=== PATIENT | female | born 1980 | race Caucasian/White ===

== ENCOUNTER → 2020-02-01 16:24 | Outpatient (CLI) | payer OTHER, MEDICAID, SELFPAY ==
--- NOTE | 2020-02-01 16:48 | DI.RAD.S_ITS ---
PROCEDURE: XR CHEST 2V INDICATIONS: SHOB/productive cough/Low sats TECHNIQUE: 2 views of the chest were acquired. COMPARISON: None. FINDINGS: Surgical changes and devices: None. Lungs and pleura: Increased bronchovascular markings in bilateral hilar region are seen with mild bronchial wall thickening. No definite focal infiltrate. No pleural effusions or pneumothorax. Mediastinum: Mediastinal contours are normal. Heart size is normal. Bones and chest wall: No suspicious bony abnormalities. Soft tissues appear unremarkable. IMPRESSION: Suggestion of reactive airway disease such as viral pneumonia or bronchitis. No definite focal infiltrate. No pleural effusion or pneumothorax. Dictated by: Sherwin Alatorre M.D. on 02/01/2020 at 17:09 Approved by: Sherwin Alatorre M.D. on 02/01/2020 at 17:10
[2020-02-02 09:47] LABS: COVID19 Sendout Not Detected (Not Detect)
== END ==
PROVIDERS: Family Provider Family Medicine; PCP Family Medicine; Visit Provider Student in an Organized Health Care Education/Training Program
DX: R05 Cough (principal)
CPT/HCPCS: 71046; 87635

== ENCOUNTER 2020-02-04 19:52 | Inpatient (IN) | payer OTHER, MEDICAID, SELFPAY ==
[2020-02-04] VITALS (8 sets, daily range): BP systolic 130–141; BP diastolic 78–83; PULSE 88–112; RESP 16–26; TEMP 36.7–36.9; O2SAT 91–94; BMI 28.1
--- NOTE | 2020-02-04 20:00 | DI.RAD.S_ITS ---
PROCEDURE: XR CHEST 2V INDICATIONS: Shortness of breath TECHNIQUE: 2 views of the chest were acquired. COMPARISON: [facility], CR, XR CHEST 2V, 02/01/2020, 16:39. FINDINGS: Surgical changes and devices: None. Lungs and pleura: Mildly increased perihilar interstitial markings. No focal consolidation. No pleural effusions or pneumothorax. Mediastinum: Mediastinal contours are normal. Heart size is normal. Bones and chest wall: No suspicious bony abnormalities. Soft tissues appear unremarkable. IMPRESSION: Mildly increased perihilar interstitial markings. This can be seen in infectious or non infectious bronchiolitis. Dictated by: Roberto Leahy M.D. on 02/04/2020 at 20:46 Approved by: Roberto Leahy M.D. on 02/04/2020 at 20:47
--- NOTE | 2020-02-04 20:08 | ED.SOB ---
HPI - SOB/Dyspnea General Chief Complaint: Shortness of Breath/Dyspnea Stated Complaint: states she cant breath Time Seen by Provider: 02/04/20 20:00 Source: patient and family Mode of arrival: Ambulatory Limitations: no limitations History of Present Illness HPI Narrative: 39-year-old female daily smoker presents with a chief complaint gradually worsening cough with wheeze since September. She denies any fever or chills but is gradually worsening, shortness of breath is moving in the wrong direction. She denies much in the way of any production of her cough. She denies any nausea or vomiting but does have some decreased appetite. She was seen and evaluated in the respiratory clinic recently and had a thorough workup including a negative COVID-19 swab and negative chest x-ray. She was put on a Z-Gregory and given a steroid taper presents here today because she is worse. MD Complaint: shortness of breath and cough Onset (ago): month(s) Severity: moderate Consistency/Duration: constant Relieving factors: nothing Exacerbating factors: exertion Associated symptoms: cough and wheezing Treatment prior to arrival: none Related Data Home oxygen amount: none Home Medications Medication Instructions Recorded Confirmed levonorgestrel 20 mcg/24 hours (5 INTRAUTERINE each 03/31/18 02/01/20 yrs) 52 mg intrauterine device Previous Rx's Medication Instructions Recorded ibuprofen 600 mg PO Q6HR PRN #20 tab 11/19/17 azithromycin 250 mg tablet See Rx Instructions PO .COMPLEX 5 02/01/20 Days #6 tab albuterol sulfate 90 mcg/actuation 1 inh INHALATION Q4-6H PRN #18 gram 02/02/20 aerosol inhaler prednisone 20 mg tablet See Rx Instructions PO .COMPLEX 6 02/02/20 Days #7 tab Allergies Allergy/AdvReac Type Severity Reaction Status Date / Time morphine [MORPHINE] Allergy Intermediate delusional Verified 02/01/20 15:50 Review of Systems Constitutional Constitutional: Denies chills, Denies fatigue, Denies fever(s), Denies frequent falls, Denies lethargy and Denies weakness Eyes Eyes: Denies change in vision, Denies eye discharge, Denies irritation and Denies loss of vision ENT Ears, Nose, Mouth, and Throat: Denies change in voice, Denies dizziness, Denies neck pain, Denies sore throat and Denies throat swelling Cardiovascular Cardiovascular: Denies chest pain, Denies irregular heart rhythm, Denies lightheadedness, Denies palpitations, Reports dyspnea, Denies dyspnea on exertion and Denies orthopnea Respiratory Respiratory: Reports cough, Reports dyspnea, Denies dyspnea on exertion and Reports wheezing Gastrointestinal Gastrointestinal: Denies abdominal pain, Denies change in bowel habits, Denies diarrhea, Denies nausea and Denies vomiting Musculoskeletal Musculoskeletal: Denies neck pain and Denies numbness Integumentary/Breasts Skin/Breast: Denies pruritus, Denies erythema, Denies rash and Denies wounds Neurologic Neurologic: Denies behavioral changes, Denies confusion, Denies dizziness, Denies frequent falls, Denies loss of vision, Denies numbness and Denies weakness Psychiatric Psychiatric: Denies anxiety, Denies behavioral changes, Denies confusion, Denies depression, Denies homicidal ideation and Denies suicidal ideation Endocrine Endocrine: Denies fatigue, Denies flushing and Denies palpitations Hematologic/Lymphatic Hematologic/Lymphatic: Denies easy bruising Allergic/Immunologic Allergic/Immunologic: Denies urticaria, Denies throat swelling and Reports wheezing Patient History Medical History ADHD (Chronic) Anxiety (Chronic) Cellulitis (Inactive) Cyst of finger (Inactive) Depression (Chronic ~1993) Fibromyalgia (Chronic ~2008) Migraines (Chronic ~1993) examination following delivery (Inactive) Shoulder pain (Chronic ~2011) Surgical History Status post delivery (07/06/11) Status post delivery (07/08/07) Family History Father Age: 61 Mental health problem Grandfather Diabetes mellitus Heart disease Social History Smoking Status: Current some day smoker Smoking Status: Current some day smoker Substance Use Type: marijuana Exam Narrative Exam Narrative: GENERAL: [39] year old patient appears stated age. Well-nourished, well-developed patient, in mild distress. HEAD: Atraumatic. Normocephalic. EYES: Pupils equal round and reactive. Extraocular motions intact. No scleral icterus. No injection or drainage. ENT: Nose without bleeding, purulent drainage. Throat without erythema, tonsillar hypertrophy or exudate. Airway patent. NECK: Trachea midline. Non tender CARDIOVASCULAR: Regular rate and rhythm without murmurs, gallops, or rubs. RESPIRATORY: Inspiratory and expiatory wheeze in all must[place], no crackles or rhonchi, tachypnea GASTROINTESTINAL: Abdomen soft, non-tender, nondistended. EXTREMITIES: No edema or joint tenderness. BACK: Nontender without deformity or crepitance. No flank tenderness. NEURO: AOx3. SKIN: No rash or erythema of visible areas Initial Vital Signs Initial Vital Signs: Vital Signs Temperature 98.1 F 02/04/20 19:56 Pulse Rate 107 H 02/04/20 19:56 Respiratory Rate 22 02/04/20 19:56 Blood Pressure 130/80 02/04/20 19:56 Pulse Oximetry 93 02/04/20 19:56 Course Orders Ordered: ED Orders 02/04/20 20:00 XR chest 2V Stat EKG-12 Lead Stat Measure peak expiratory flow ONCE RT Consult Eval and Treat Now 02/04/20 20:12 High flow/High humidity nasal NOW 02/04/20 20:50 C-Reactive Protein Quant Stat Complete Blood Count AUTO DIFF Stat Comprehensive Metabolic Panel Stat D Dimer Stat Ferritin Stat Lactate (Lactic Acid) Stat NT-proBNP (BNP-Adult 18+) Stat Procalcitonin Stat 02/04/20 20:55 Blood Culture Stat 02/04/20 21:20 CT angio chest PE protocol Stat Albuterol (Ventolin Hfa (Vent/Covid R/O)) 1 puff INH Q4H PRN PRN Reason: shortness of breath Sodium Chloride (Normal Saline 0.9%) 1,000 mls @ 125 mls/hr IV CONT DYLAN Last Admin: 02/05/20 01:55 Dose: 125 mls/hr Documented by: [email or web address] Levofloxacin (Levaquin) 750 mg in 150 mls @ 100 mls/hr IV NOW ONE Stop: 02/05/20 02:21 Last Admin: 02/05/20 01:56 Dose: 100 mls/hr Documented by: [email or web address] Discontinued Medications Albuterol (Ventolin Hfa) 2 puff INH NOW ONE Stop: 02/04/20 20:13 Sodium Chloride (Normal Saline 0.9%) 1,000 mls @ 1,000 mls/hr IV BOLUS ONE Stop: 02/04/20 22:18 Last Infusion: 02/04/20 22:45 Dose: 0 mls/hr Documented by: Admin: 02/04/20 21:34 Dose: 1,000 mls/hr Documented by: ROHAN Lorazepam (Ativan) 0.5 mg IV NOW ONE Stop: 02/05/20 02:06 Methylprednisolone (Solu-Medrol 125 Mg Vial) 125 mg IV NOW ONE Stop: 02/04/20 20:14 Last Admin: 02/04/20 21:20 Dose: 125 mg Documented by: ROHAN Consultations Consultation #1: Dr. Mcelroy accepts on behalf of Dr. Anderson, asks that we admit to Dr. Anderson and write bridging orders Vital Signs Vital signs: Vital Signs - 8 hr 02/04/20 19:56 02/04/20 20:18 02/04/20 21:54 Temperature 98.1 F Pulse Rate 107 H 93 H Respiratory Rate 22 22 Blood Pressure 130/80 Pulse Oximetry 93 94 94 02/04/20 21:58 02/04/20 22:00 02/04/20 22:30 Temperature 98.4 F Pulse Rate 88 88 103 H Respiratory Rate 16 26 H 25 H Blood Pressure 141/83 H 130/78 136/82 Pulse Oximetry 94 93 94 02/04/20 23:00 02/04/20 23:30 02/05/20 00:00 Temperature Pulse Rate 112 H 106 H 87 Respiratory Rate 25 H 23 Blood Pressure Pulse Oximetry 94 91 93 02/05/20 00:30 02/05/20 01:00 02/05/20 01:28 Temperature Pulse Rate 79 90 105 H Respiratory Rate 21 29 H Blood Pressure 136/90 Pulse Oximetry 95 96 97 02/05/20 01:30 Temperature Pulse Rate 101 H Respiratory Rate 34 H Blood Pressure 146/91 H Pulse Oximetry 96 MDM - SOB/Dyspnea Lab Data Result diagrams: 02/04/20 20:50 02/04/20 20:50 Labs: Lab Results 02/04/20 02/04/20 02/04/20 Range/Units 20:50 20:50 20:50 WBC 19.0 H (4.5-11.0) X10^3/uL RBC 4.99 (4.0-5.2) X10^6/uL Hgb 15.2 (12.0-16.0) g/dL Hct 45.4 (36-46) % MCV 91.0 (80-100) fL MCH 30.5 (26-34) PG MCHC 33.5 (30-36) % RDW 13.6 (11.6-14.8) % Plt Count 382 (150-400) X10^3/uL Neut % (Auto) 80.7 H (50-75) % Lymph % (Auto) 13.1 L (25-40) % [place] % (Auto) 5.5 (3-14) % Eos % (Auto) 0.1 L (2-4) % Baso % (Auto) 0.6 (0-2) % Neut # (Auto) 73902 H (7422-1110) /uL Lymph # (Auto) 2500 (8539-2302) /uL [place] # (Auto) 1000 H (0-900) /uL Eos # (Auto) 0 (0-450) /uL Baso # (Auto) 100 (0-100) /uL D-Dimer 279 H (<230) ng/mL Sodium (137-145) mmol/L Potassium (3.4-5.1) mmol/L Chloride (98-107) mmol/L Carbon Dioxide (22-32) mmol/L BUN (7-17) mg/dL Creatinine (0.52-1.04) mg/dL Estimated GFR (>60) mL/min BUN/Creatinine Ratio (6-22) Glucose (70-100) mg/dL Lactate (0.7-2.1) mmol/L Calcium (8.4-10.2) mg/dL Ferritin (6-137) ng/mL Total Bilirubin (0.2-1.3) mg/dL AST (14-36) IU/L ALT (<35) IU/L Alkaline Phosphatase (38-126) U/L C-Reactive Protein (<1.0) mg/dL NT-Pro-B Natriuret Pep (<125) pg/mL Total Protein (6.3-8.2) g/dL Albumin (3.5-5.0) g/dL Globulin (1.7-4.1) g/dL Albumin/Globulin Ratio (1.0-2.8) Procalcitonin < 0.05 (<0.5) ng/mL COVID-19 PCR (Negative) 02/04/20 02/04/20 02/04/20 Range/Units 20:50 20:50 23:24 WBC (4.5-11.0) X10^3/uL RBC (4.0-5.2) X10^6/uL Hgb (12.0-16.0) g/dL Hct (36-46) % MCV (80-100) fL MCH (26-34) PG MCHC (30-36) % RDW (11.6-14.8) % Plt Count (150-400) X10^3/uL Neut % (Auto) (50-75) % Lymph % (Auto) (25-40) % [place] % (Auto) (3-14) % Eos % (Auto) (2-4) % Baso % (Auto) (0-2) % Neut # (Auto) (3244-6865) /uL Lymph # (Auto) (7198-8333) /uL [place] # (Auto) (0-900) /uL Eos # (Auto) (0-450) /uL Baso # (Auto) (0-100) /uL D-Dimer (<230) ng/mL Sodium 140 (137-145) mmol/L Potassium 4.0 (3.4-5.1) mmol/L Chloride 104 (98-107) mmol/L Carbon Dioxide 24 (22-32) mmol/L BUN 13 (7-17) mg/dL Creatinine 0.75 (0.52-1.04) mg/dL Estimated GFR > 60.0 (>60) mL/min BUN/Creatinine Ratio 17.3 (6-22) Glucose 113 H (70-100) mg/dL Lactate 4.0 H 1.7 (0.7-2.1) mmol/L Calcium 10.0 (8.4-10.2) mg/dL Ferritin 89 (6-137) ng/mL Total Bilirubin 0.7 (0.2-1.3) mg/dL AST 21 (14-36) IU/L ALT 17 (<35) IU/L Alkaline Phosphatase 54 (38-126) U/L C-Reactive Protein 4.4 H (<1.0) mg/dL NT-Pro-B Natriuret Pep 88 (<125) pg/mL Total Protein 7.8 (6.3-8.2) g/dL Albumin 4.7 (3.5-5.0) g/dL Globulin 3.1 (1.7-4.1) g/dL Albumin/Globulin Ratio 1.5 (1.0-2.8) Procalcitonin (<0.5) ng/mL COVID-19 PCR (Negative) 02/04/20 Range/Units 23:33 WBC (4.5-11.0) X10^3/uL RBC (4.0-5.2) X10^6/uL Hgb (12.0-16.0) g/dL Hct (36-46) % MCV (80-100) fL MCH (26-34) PG MCHC (30-36) % RDW (11.6-14.8) % Plt Count (150-400) X10^3/uL Neut % (Auto) (50-75) % Lymph % (Auto) (25-40) % [place] % (Auto) (3-14) % Eos % (Auto) (2-4) % Baso % (Auto) (0-2) % Neut # (Auto) (2515-3027) /uL Lymph # (Auto) (7196-2725) /uL [place] # (Auto) (0-900) /uL Eos # (Auto) (0-450) /uL Baso # (Auto) (0-100) /uL D-Dimer (<230) ng/mL Sodium (137-145) mmol/L Potassium (3.4-5.1) mmol/L Chloride (98-107) mmol/L Carbon Dioxide (22-32) mmol/L BUN (7-17) mg/dL Creatinine (0.52-1.04) mg/dL Estimated GFR (>60) mL/min BUN/Creatinine Ratio (6-22) Glucose (70-100) mg/dL Lactate (0.7-2.1) mmol/L Calcium (8.4-10.2) mg/dL Ferritin (6-137) ng/mL Total Bilirubin (0.2-1.3) mg/dL AST (14-36) IU/L ALT (<35) IU/L Alkaline Phosphatase (38-126) U/L C-Reactive Protein (<1.0) mg/dL NT-Pro-B Natriuret Pep (<125) pg/mL Total Protein (6.3-8.2) g/dL Albumin (3.5-5.0) g/dL Globulin (1.7-4.1) g/dL Albumin/Globulin Ratio (1.0-2.8) Procalcitonin (<0.5) ng/mL COVID-19 PCR Negative (Negative) Imaging Data CT scan - chest: Radiologist's Impression: No PE, multiple groundglass opacities MDM Narrative Medical decision making narrative: Patient with increasing respiratory symptoms including shortness of breath and persistent dry hacking cough over the past few days. She has had a recent visit to outpatient clinic and was treated for a viral pneumonia, had a [place] id negative and was given a Z-Gregory and steroid. She presents and is worsening despite these symptoms. Patient given fluids, IV antibiotics and though initial lactate was quite elevated the repeat had greatly improved after above-stated therapies, and there is some question regarding. Patient has had no fever and WBC very possibly elevated from steroid vs. infection. Patient initially thought to be exacerbation of COPD and viral pneumonia, ABX had already been given earlier today. She requires hospitalization for stabilization and ongoing evaluation. Discharge Plan Departure Patient Disposition: Admitted As Inpatient Clinical Impression: COPD exacerbation, Multifocal pneumonia Referrals: Roberto Anderson MD [Primary Care Provider] - Admit Date/Time: 02/05/20 01:53 Admit Provider: Roberto Anderson
--- NOTE | 2020-02-04 20:39 | RT ---
02/04/2020 2018 Eval and Treat patient with recent diagnosis of PNA, paroxysmal cough and wheezing. Patient admits to smoking and using Albuterol for several days. VS: P80/ RR 22/ Sat 94% on RA/ BS diffuse tight wheezes on E-phase increased with paroxysmal cough. Patient is an admitted smoker. Post treatment and evaluation: P 100/ RR 22/ Sat 94% on RA with lingering cough and essentially the same wheezes. MDI instruct and spacer instruct and used patient's inhaler x 3 without much relief. PF post inhalers 200LPM. Will recommend [id number]-style cough syrup or similar and use of MDI with spacer. Patient may need more than this or admit. Paul Garcia, PULL WORKER
[2020-02-04 21:05] LABS: Add Manual Diff / Slide Review NO; Basophils Absolute Auto 100 /uL (0-100); Basophils Percent Auto 0.6 % (0-2); Eosinophils Absolute Auto 0 /uL (0-450); Eosinophils Percent Auto 0.1 % (2-4); Hematocrit 45.4 % (36-46); Hemoglobin 15.2 g/dL (12.0-16.0); Lymphocytes Absolute Auto 2500 /uL (1100-4500); Lymphocytes Percent Auto 13.1 % (25-40); Mean Corpuscular HGB Conc 33.5 % (30-36); Mean Corpuscular Hemoglobin 30.5 PG (26-34); Monocytes Absolute Auto 1000 /uL (0-900); Monocytes Percent Auto 5.5 % (3-14); Neutrophils Absolute Auto 15300 /uL (1500-7000); Neutrophils Percent Auto 80.7 % (50-75); Platelet Count 382 X10^3/uL (150-400); Red Blood Cell Count 4.99 X10^6/uL (4.0-5.2); Red Cell Distribution Width 13.6 % (11.6-14.8)
[2020-02-04 21:15] LABS: D Dimer 279 ng/mL (<230)
[2020-02-04] MEDS: methylPREDNISolone 125 MG/2 ML VIAL IV (21:20)
--- NOTE | 2020-02-04 21:20 | DI.CT.S_ITS ---
PROCEDURE: CT ANGIO CHEST PE PROTOCOL INDICATIONS: CP, SOB, hypoxia, elevated D Dimer TECHNIQUE: After the administration of intravenous contrast, 2 mm thick sections acquired from the pulmonary apices to the posterior costophrenic angles. 3-dimensional maximum intensity projection (MIP) coronal and sagittal reformats were then acquired through the thorax. For radiation dose reduction, the following was used: automated exposure control, adjustment of mA and/or kV according to patient size. COMPARISON: None. FINDINGS: Image quality: Excellent. Pulmonary arteries: Pulmonary arteries are normal in size, and demonstrate no intraluminal filling defects to suggest central pulmonary embolism. Lungs and pleura: Multifocal ground-glass opacities in the noted in the lungs bilaterally with central predominance. No pleural effusions or pneumothorax. Central and peripheral airways are patent. Mediastinum: Heart size is normal, without pericardial effusion. No mediastinal or hilar adenopathy. Thoracic aorta is normal in caliber and enhancement. Esophagus is normal in caliber, without hiatal hernia. Bones and chest wall: No suspicious bony lesions. Ribs and thoracic spine appear intact throughout. Thyroid gland contains a 1.7 centimeter partially calcified hypoattenuating nodule in the right lobe. No axillary or supraclavicular adenopathy. Abdomen: Visualized upper abdominal solid organs appear normal in the early arterial phase of enhancement. IMPRESSION: 1. No pulmonary embolus. 2. Bilateral lung multifocal ground-glass opacities concerning for atypical pneumonia. 3. 1.7 centimeter right thyroid nodule. Recommend thyroid ultrasound for definitive characterization when clinically feasible. Dictated by: Yeny Guillaume MD, PhD on 02/05/2020 at 7:05 Approved by: Yeny Guillaume MD, PhD on 02/05/2020 at 7:08
[2020-02-04 21:21] LABS: Alanine Aminotransferase 17 IU/L (<35); Albumin 4.7 g/dL (3.5-5.0); Albumin Globulin Ratio 1.5 (1.0-2.8); Alkaline Phosphatase 54 U/L (38-126); Aspartate Aminotransferase 21 IU/L (14-36); BUN Creatinine Ratio 17.3 (6-22); Bilirubin Total 0.7 mg/dL (0.2-1.3); Blood Urea Nitrogen 13 mg/dL (7-17); C-Reactive Protein Quant 4.4 mg/dL (<1.0); Carbon Dioxide 24 mmol/L (22-32); Chloride 104 mmol/L (98-107); Estimated Glomerular Filt Rate > 60.0 mL/min (>60); Globulin 3.1 g/dL (1.7-4.1); Glucose 113 mg/dL (70-100); HEMOLYSIS < 15 (0-50); Sodium 140 mmol/L (137-145); Total Protein 7.8 g/dL (6.3-8.2)
[2020-02-04 21:27] LABS: NT-proBNP (BNP-Adult 18+) 88 pg/mL (<125)
[2020-02-04 21:33] LABS: Procalcitonin < 0.05 ng/mL (<0.5)
[2020-02-04] MEDS: SODIUM CHLORIDE 0.9% 1,000 ML 1000 ML IV (21:34)
[2020-02-04 21:53] LABS: Ferritin 89 ng/mL (6-137)
[2020-02-04 22:59] LABS: Reflexed Lactate in 2 Hours Y
[2020-02-04 23:48] LABS: Lactate 2HR (Lactic Acid Rflx) 1.7 mmol/L (0.7-2.1)
[2020-02-05] VITALS (21 sets, daily range): BP systolic 136–170; BP diastolic 69–91; PULSE 79–120; RESP 12–34; TEMP 36.8–37.3; O2SAT 87–98; BMI 28.1
[2020-02-05 00:30] LABS: COVID19 -Nasal RAPID Negative (Negative)
[2020-02-05] MEDS: SODIUM CHLORIDE 0.9% 1,000 ML 125 ML IV (01:55)
[2020-02-05] MEDS: levoFLOXacin 750 MG/150 ML PIGGYBACK 100 MG IV ×2 (01:56→20:56)
[2020-02-05] MEDS: LORazepam 2 MG/ML INJ 0.5 MG IV ×5 (02:18→22:42)
[2020-02-05] MEDS: ALBUTEROL/IPRATROPIUM 3 ML AMPUL INH ×5 (02:31→22:25)
--- NOTE | 2020-02-05 06:50 | PC.NURSE ---
Late entry: Pt arrived to unit via wheelchair approx 0310, assisted to BR by MARKETING STRATEGIST. Pt's O2 sats running between 88-89% RA- started pt on O2 via NC 2-3L- sats running WNL now. Oriented to call light. Nursing assesment completed. Belongings at beside- offered to placed them in a safe she refused. Home meds were given to the coordinator to be sent to the pharmacy. Pt reports she had a couple hits of heroin prior going to the ED. Last use of Marijuana couple days ago.
[2020-02-05 06:51] LABS: Add Manual Diff / Slide Review NO; Basophils Absolute Auto 100 /uL (0-100); Basophils Percent Auto 0.5 % (0-2); Eosinophils Absolute Auto 0 /uL (0-450); Hematocrit 40.6 % (36-46); Hemoglobin 13.8 g/dL (12.0-16.0); Lymphocytes Absolute Auto 800 /uL (1100-4500); Lymphocytes Percent Auto 5.7 % (25-40); Mean Corpuscular HGB Conc 33.9 % (30-36); Mean Corpuscular Hemoglobin 30.7 PG (26-34); Mean Corpuscular Volume 90.6 fL (80-100); Monocytes Absolute Auto 100 /uL (0-900); Neutrophils Absolute Auto 12400 /uL (1500-7000); Neutrophils Percent Auto 92.8 % (50-75); Platelet Count 283 X10^3/uL (150-400); Red Blood Cell Count 4.48 X10^6/uL (4.0-5.2); Red Cell Distribution Width 13.3 % (11.6-14.8); White Blood Cell Count 13.4 X10^3/uL (4.5-11.0)
--- NOTE | 2020-02-05 09:27 | P.HP_ITS ---
History of Present Illness History of Present Illness Date Patient Seen: 02/05/20 Time Patient Seen: 09:27 Date of Onset of Symptoms: 09/20/19 Chief complaint: states she cant breath Patient History Medical History ADHD (Chronic) Anxiety (Chronic) Cellulitis (Inactive) Cyst of finger (Inactive) Depression (Chronic ~1993) Fibromyalgia (Chronic ~2008) Migraines (Chronic ~1993) examination following delivery (Inactive) Shoulder pain (Chronic ~2011) Surgical History Status post delivery (07/06/11) Status post delivery (07/08/07) Family & Social History Family History Father Age: 61 Mental health problem Grandfather Diabetes mellitus Heart disease Social History: household members other Prior Living Arrangements Homeless Safety & Behavioral: Feels Safe in Current Yes Environment Been Physically Hurt or No Threatened By a Person Suicidal Ideation Description None Suicide Plan Description No Plan Tobacco & Substance use: Tobacco type cigarettes Smoking Status Current some day smoker alcohol intake never Substance Use Type marijuana,heroin Meds Home Medications and Allergies Home Medications Medication Instructions Recorded Confirmed Type ibuprofen 600 mg PO Q6HR PRN #20 tab 11/19/17 02/05/20 Rx levonorgestrel 20 mcg/24 hours (5 INTRAUTERINE each 03/31/18 02/01/20 History yrs) 52 mg intrauterine device azithromycin 250 mg tablet See Rx Instructions PO .COMPLEX 5 02/01/20 02/05/20 Rx Days #6 tab albuterol sulfate 90 mcg/actuation 1 inh INHALATION Q4-6H PRN #18 gram 02/02/20 02/05/20 Rx aerosol inhaler prednisone 20 mg tablet See Rx Instructions PO .COMPLEX 6 02/02/20 02/05/20 Rx Days #7 tab Allergies Allergy/AdvReac Type Severity Reaction Status Date / Time morphine [MORPHINE] Allergy Intermediate delusional Verified 02/01/20 15:50 Exam Vital Signs (past 8 hours): - 02/05/20 01:28 02/05/20 01:30 02/05/20 02:00 Temperature Pulse Rate 105 H 101 H 105 H Respiratory Rate 34 H 29 H Blood Pressure 136/90 146/91 H Pulse Oximetry 97 96 95 02/05/20 02:30 02/05/20 02:55 02/05/20 04:32 Temperature 98.4 F Pulse Rate 104 H Respiratory Rate 12 Blood Pressure 144/89 H 148/82 H Pulse Oximetry 90 L 95 02/05/20 06:41 02/05/20 08:00 02/05/20 09:01 Temperature 98.9 F Pulse Rate 89 113 H 110 H Respiratory Rate 33 H 24 Blood Pressure 149/69 H Pulse Oximetry 98 95 93 Oxygen Delivery Method Nasal Cannula Oxygen Flow Rate 2 Objective Labs Result Diagrams: 02/05/20 06:25 02/04/20 20:50 Labs: Laboratory Results - last 24 hr 02/04/20 02/04/20 02/04/20 20:50 20:50 20:50 WBC 19.0 H RBC 4.99 Hgb 15.2 Hct 45.4 MCV 91.0 MCH 30.5 MCHC 33.5 RDW 13.6 Plt Count 382 Neut % (Auto) 80.7 H Lymph % (Auto) 13.1 L [place] % (Auto) 5.5 Eos % (Auto) 0.1 L Baso % (Auto) 0.6 Neut # (Auto) 77258 H Lymph # (Auto) 2500 [place] # (Auto) 1000 H Eos # (Auto) 0 Baso # (Auto) 100 D-Dimer 279 H Sodium Potassium Chloride Carbon Dioxide BUN Creatinine Estimated GFR BUN/Creatinine Ratio Glucose Lactate Calcium Ferritin Total Bilirubin AST ALT Alkaline Phosphatase C-Reactive Protein NT-Pro-B Natriuret Pep Total Protein Albumin Globulin Albumin/Globulin Ratio Procalcitonin < 0.05 COVID-19 PCR 02/04/20 02/04/20 02/04/20 20:50 20:50 23:24 WBC RBC Hgb Hct MCV MCH MCHC RDW Plt Count Neut % (Auto) Lymph % (Auto) [place] % (Auto) Eos % (Auto) Baso % (Auto) Neut # (Auto) Lymph # (Auto) [place] # (Auto) Eos # (Auto) Baso # (Auto) D-Dimer Sodium 140 Potassium 4.0 Chloride 104 Carbon Dioxide 24 BUN 13 Creatinine 0.75 Estimated GFR > 60.0 BUN/Creatinine Ratio 17.3 Glucose 113 H Lactate 4.0 H 1.7 Calcium 10.0 Ferritin 89 Total Bilirubin 0.7 AST 21 ALT 17 Alkaline Phosphatase 54 C-Reactive Protein 4.4 H NT-Pro-B Natriuret Pep 88 Total Protein 7.8 Albumin 4.7 Globulin 3.1 Albumin/Globulin Ratio 1.5 Procalcitonin COVID-19 PCR 02/04/20 02/05/20 23:33 06:25 WBC 13.4 H RBC 4.48 Hgb 13.8 Hct 40.6 MCV 90.6 MCH 30.7 MCHC 33.9 RDW 13.3 Plt Count 283 Neut % (Auto) 92.8 H Lymph % (Auto) 5.7 L [place] % (Auto) 1.0 L Eos % (Auto) 0.0 L Baso % (Auto) 0.5 Neut # (Auto) 60177 H Lymph # (Auto) 800 L [place] # (Auto) 100 Eos # (Auto) 0 Baso # (Auto) 100 D-Dimer Sodium Potassium Chloride Carbon Dioxide BUN Creatinine Estimated GFR BUN/Creatinine Ratio Glucose Lactate Calcium Ferritin Total Bilirubin AST ALT Alkaline Phosphatase C-Reactive Protein NT-Pro-B Natriuret Pep Total Protein Albumin Globulin Albumin/Globulin Ratio Procalcitonin COVID-19 PCR Negative
[2020-02-05] MEDS: ENOXAPARIN 40 MG/0.4 ML SYRINGE SUBCUT (09:29)
[2020-02-05] MEDS: ACETAMINOPHEN 325 MG TABLET 650 MG PO (09:29)
[2020-02-05] MEDS: IBUPROFEN 600 MG TABLET PO ×2 (09:30→22:10)
--- NOTE | 2020-02-05 09:32 | P.HP_ITS ---
History of Present Illness History of Present Illness Date Patient Seen: 02/05/20 Time Patient Seen: 09:32 Date of Onset of Symptoms: 09/20/19 Chief complaint: states she cant breath Narrative: Shortness of breath. Patient admitted through the ER because of shortness of breath. She has been having shortness of breath symptoms since September has had a cough a and slight wheeze. She had no fever chills she is aware of. No head congestion to shortness of breath period of this persisted for several weeks. She came to the walk-in clinic last week found to have what was felt to be atypical pneumonia placed on oral steroids and azithromycin. She did not feel like this had any effect. She came in this morning because of increased shortness of breath. Additionally she is a daily heroin user and she wants to stop using heroin and she feels like she may need some assistance as far for the withdrawal. She has had heroin withdrawal in the past. She apparently has been using daily heroin since July of this year. She is evaluated in with louann Jenkins. Patient has been a smoker intermittently for several years on and off she quit smoking during the fibroid disease. She denies ever having had a title of of COPD. Patient History Medical History ADHD (Chronic) Anxiety (Chronic) Cellulitis (Inactive) Cyst of finger (Inactive) Depression (Chronic ~1993) Fibromyalgia (Chronic ~2008) Migraines (Chronic ~1993) examination following delivery (Inactive) Shoulder pain (Chronic ~2011) Surgical History Status post delivery (07/06/11) Status post delivery (07/08/07) Family & Social History Family History Father Age: 61 Mental health problem Grandfather Diabetes mellitus Heart disease Social History: household members other Prior Living Arrangements Homeless Safety & Behavioral: Feels Safe in Current Yes Environment Been Physically Hurt or No Threatened By a Person Suicidal Ideation Description None Suicide Plan Description No Plan Tobacco & Substance use: Tobacco type cigarettes Smoking Status Current some day smoker alcohol intake never Substance Use Type marijuana,heroin Meds Home Medications and Allergies Home Medications Medication Instructions Recorded Confirmed Type ibuprofen 600 mg PO Q6HR PRN #20 tab 11/19/17 02/05/20 Rx levonorgestrel 20 mcg/24 hours (5 INTRAUTERINE each 03/31/18 02/01/20 History yrs) 52 mg intrauterine device azithromycin 250 mg tablet See Rx Instructions PO .COMPLEX 5 02/01/20 02/05/20 Rx Days #6 tab albuterol sulfate 90 mcg/actuation 1 inh INHALATION Q4-6H PRN #18 gram 02/02/20 02/05/20 Rx aerosol inhaler prednisone 20 mg tablet See Rx Instructions PO .COMPLEX 6 02/02/20 02/05/20 Rx Days #7 tab Allergies Allergy/AdvReac Type Severity Reaction Status Date / Time morphine [MORPHINE] Allergy Intermediate delusional Verified 02/01/20 15:50 Review of Systems Review of Systems ROS: Yes All systems reviewed with the patient and are negative except as otherwise documented Exam Vital Signs (past 8 hours): - 02/05/20 02:00 02/05/20 02:30 02/05/20 02:55 Temperature 98.4 F Pulse Rate 105 H 104 H Respiratory Rate 29 H 12 Blood Pressure 144/89 H 148/82 H Pulse Oximetry 95 90 L 02/05/20 04:32 02/05/20 06:41 02/05/20 08:00 Temperature 98.9 F Pulse Rate 89 113 H Respiratory Rate 33 H Blood Pressure 149/69 H Pulse Oximetry 95 98 95 02/05/20 09:01 Temperature Pulse Rate 110 H Respiratory Rate 24 Blood Pressure Pulse Oximetry 93 Oxygen Delivery Method Nasal Cannula Oxygen Flow Rate 2 Narrative Exam Narrative: Gen.: Patient is examined in the hospital bed resting quietly with nasal oxygen. She does appear a bit short of breath and has audible wheezing. Skin: Warm well perfused. No prominent lesions. Nonicteric. HEENT: PERRL., normal EOM, external ears canals TMs normal, nasal mucosa normal and midline septum, oropharynx without lesions. Neck: Trachea midline. Thyroid nontender and not enlarged. Carotids without bruits. No lymphadenopathy Back: No obvious deformity or tenderness. Chest: Chest exam finds decreased breath sounds at does not take a deep breath. She has inspiratory and expiratory wheezing no rales but did have inspiratory rhonchi CV: RRR no murmur or gallop. No JVD. Abdomen: No masses bruits tenderness or visceromegaly. Neuro: Cranial nerves II through XII grossly intact. Sensory and motor exams intact. Gait normal. Mental status: Intact for screening Extremities: No cyanosis clubbing or edema Musculoskeletal: No gross deformities Lymphatics: Negative for lymphadenopathy, supraclavicular axillary or inguinal Objective Labs Result Diagrams: 02/05/20 06:25 02/04/20 20:50 Labs: Laboratory Results - last 24 hr 02/04/20 02/04/20 02/04/20 20:50 20:50 20:50 WBC 19.0 H RBC 4.99 Hgb 15.2 Hct 45.4 MCV 91.0 MCH 30.5 MCHC 33.5 RDW 13.6 Plt Count 382 Neut % (Auto) 80.7 H Lymph % (Auto) 13.1 L [place] % (Auto) 5.5 Eos % (Auto) 0.1 L Baso % (Auto) 0.6 Neut # (Auto) 35821 H Lymph # (Auto) 2500 [place] # (Auto) 1000 H Eos # (Auto) 0 Baso # (Auto) 100 D-Dimer 279 H Sodium Potassium Chloride Carbon Dioxide BUN Creatinine Estimated GFR BUN/Creatinine Ratio Glucose Lactate Calcium Ferritin Total Bilirubin AST ALT Alkaline Phosphatase C-Reactive Protein NT-Pro-B Natriuret Pep Total Protein Albumin Globulin Albumin/Globulin Ratio Procalcitonin < 0.05 COVID-19 [facility] 02/04/20 02/04/20 02/04/20 20:50 20:50 23:24 WBC RBC Hgb Hct MCV MCH MCHC RDW Plt Count Neut % (Auto) Lymph % (Auto) [place] % (Auto) Eos % (Auto) Baso % (Auto) Neut # (Auto) Lymph # (Auto) [place] # (Auto) Eos # (Auto) Baso # (Auto) D-Dimer Sodium 140 Potassium 4.0 Chloride 104 Carbon Dioxide 24 BUN 13 Creatinine 0.75 Estimated GFR > 60.0 BUN/Creatinine Ratio 17.3 Glucose 113 H Lactate 4.0 H 1.7 Calcium 10.0 Ferritin 89 Total Bilirubin 0.7 AST 21 ALT 17 Alkaline Phosphatase 54 C-Reactive Protein 4.4 H NT-Pro-B Natriuret Pep 88 Total Protein 7.8 Albumin 4.7 Globulin 3.1 Albumin/Globulin Ratio 1.5 Procalcitonin COVID-19 PCR 02/04/20 02/05/20 23:33 06:25 WBC 13.4 H RBC 4.48 Hgb 13.8 Hct 40.6 MCV 90.6 MCH 30.7 MCHC 33.9 RDW 13.3 Plt Count 283 Neut % (Auto) 92.8 H Lymph % (Auto) 5.7 L [place] % (Auto) 1.0 L Eos % (Auto) 0.0 L Baso % (Auto) 0.5 Neut # (Auto) 89673 H Lymph # (Auto) 800 L [place] # (Auto) 100 Eos # (Auto) 0 Baso # (Auto) 100 D-Dimer Sodium Potassium Chloride Carbon Dioxide BUN Creatinine Estimated GFR BUN/Creatinine Ratio Glucose Lactate Calcium Ferritin Total Bilirubin AST ALT Alkaline Phosphatase C-Reactive Protein NT-Pro-B Natriuret Pep Total Protein Albumin Globulin Albumin/Globulin Ratio Procalcitonin COVID-19 PCR Negative labs reviewed of significance on admission elevated white count elevated lactate that of normalized with IV fluids. Chest x-ray and chest CT consistent with viral pneumonitis no no blood clot no tumor no evidence for lobar pneumonia Assessment & Plan Assessment & Plan narrative: 1. The shortness of breath the has been ongoing problem and probably has some evidence of COPD base of the chronicity of this but no clear diagnosis. Shortness of breath seems to be chronic inflammatory type of shortness of breath likely has atypical pneumonitis now. 2. Ongoing smoker. 3. Here when user and the perhaps experiencing some withdrawal symptoms now. 4. Homelessness 5. Plan is to give her intravenous the will Inderjit over the weekend. Additionally Solu-Medrol intravenously. She will be given Ativan every 4 hours for agitation. Anticipate she will be here 3 or 4 days for because the combination or shortness of breath requiring fairly aggressive pulmonary toilet and treatment of her presumed heroin withdrawal with Ativan. Dr. Garcia will resume care over the weekend and Dr. Anderson will assume care on Saturday upon his return
[2020-02-05] MEDS: DEXTROSE 5%-0.9% NS 1,000 ML 100 ML IV ×2 (09:36→17:53)
[2020-02-05] MEDS: methylPREDNISolone 125 MG/2 ML VIAL 60 MG IV ×3 (09:41→20:56)
--- NOTE | 2020-02-05 14:16 | CM.SWNOTE ---
AUTOMOBILE MECHANIC MOTOR Note AUTOMOBILE MECHANIC MOTOR consult request placed to assess needs of this 39 yo, active heroin user, admits to currently being homeless. According to chart review, patient is admitted d/t SOB, COVID-19 Neg. Patient is a daily heroin user since July of this year, and requests assistance w/ detox. Patient has multiple children from different partners, none of whom are in her custody. Met w/patient this afternoon, introduced role. This AUTOMOBILE MECHANIC MOTOR suggests inpatient ANNA treatment if patient interested in such and this AUTOMOBILE MECHANIC MOTOR explains efforts should begin today, Saturday. Patient states it is difficult to talk or breathe today so requests this AUTOMOBILE MECHANIC MOTOR return tomorrow. Patient refuses inpatient ANNA treatment at this time. She states she has wanted to be clean but has been terrified of withdrawal so hasn't stopped using. Patient intends to stay clean after this hospitalization, states she has places to go upon DC. This AUTOMOBILE MECHANIC MOTOR will not initiate any steps towards securing an inpatient ANNA treatment spot, but am happy to follow closely and complete a more thorough assessment tomorrow if patient allows. Patient would benefit from outpt ANNA treatment resources. She would also benefit from a referral to [facility] through Dr Anderson's office if she were agreeable. RA Cross
--- NOTE | 2020-02-05 15:30 | PC.NURSE ---
Addendum entered by Lizzy Aguirre R.N. 02/05/20 15:31: Pt hops on right foot with IV pole due to recent left foot trauma; pt instructed to use call light for SBA Original Note: Anxiety and mild sweating to palms; IV Ativan administered; dry cough; expiratory wheezing; RT treatment; O2 2L=95%; pt resting in bed throughout shift
[2020-02-06] VITALS (7 sets, daily range): BP systolic 128–139; BP diastolic 70–90; PULSE 87–124; RESP 16–26; TEMP 36.7–37.2; O2SAT 93–99
[2020-02-06] MEDS: LORazepam 2 MG/ML INJ 0.5 MG IV ×5 (02:22→20:11)
[2020-02-06] MEDS: methylPREDNISolone 125 MG/2 ML VIAL 60 MG IV ×4 (03:21→20:56)
[2020-02-06 06:04] LABS: Add Manual Diff / Slide Review NO; Basophils Absolute Auto 0 /uL (0-100); Basophils Percent Auto 0.3 % (0-2); Eosinophils Absolute Auto 0 /uL (0-450); Hematocrit 37.4 % (36-46); Hemoglobin 12.4 g/dL (12.0-16.0); Lymphocytes Absolute Auto 800 /uL (1100-4500); Lymphocytes Percent Auto 6.3 % (25-40); Mean Corpuscular HGB Conc 33.1 % (30-36); Mean Corpuscular Hemoglobin 30.1 PG (26-34); Monocytes Absolute Auto 400 /uL (0-900); Neutrophils Absolute Auto 11100 /uL (1500-7000); Neutrophils Percent Auto 90.4 % (50-75); Platelet Count 303 X10^3/uL (150-400); Red Blood Cell Count 4.11 X10^6/uL (4.0-5.2); Red Cell Distribution Width 13.5 % (11.6-14.8); White Blood Cell Count 12.3 X10^3/uL (4.5-11.0)
[2020-02-06 06:12] LABS: BUN Creatinine Ratio 16.9 (6-22); Blood Urea Nitrogen 11 mg/dL (7-17); Calcium 9.3 mg/dL (8.4-10.2); Carbon Dioxide 24 mmol/L (22-32); Chloride 105 mmol/L (98-107); Estimated Glomerular Filt Rate > 60.0 mL/min (>60); Glucose 155 mg/dL (70-100); HEMOLYSIS < 15 (0-50); Potassium 4.1 mmol/L (3.4-5.1); Sodium 136 mmol/L (137-145)
[2020-02-06] MEDS: ENOXAPARIN 40 MG/0.4 ML SYRINGE SUBCUT (09:21)
[2020-02-06] MEDS: SODIUM CHLORIDE 0.9% FLUSH 10 ML IV ×2 (09:21→10:25)
[2020-02-06] MEDS: DEXTROSE 5%-0.9% NS 1,000 ML 100 ML IV ×2 (10:25→20:11)
--- NOTE | 2020-02-06 10:33 | PM.PN.1 ---
Subjective Subjective Date Patient Seen: 02/06/20 Time Patient Seen: 10:33 Interval history: Patient says her breathing is much better. Does not feel as tight or as breathless as she did Having some nausea and some restlessness clearly withdrawing from heroin. Reports she was smoking only but doing it up to 10 times a day. Now approaching 36 hours without any heroin Exam Vital Signs (past 8 hours): - 02/06/20 05:30 02/06/20 08:00 02/06/20 08:30 Temperature 98.9 F 98.3 F Pulse Rate 103 H 103 H 87 Respiratory Rate 18 26 H 16 Blood Pressure 136/90 139/88 Pulse Oximetry 97 97 96 Oxygen Delivery Method Room Air Oxygen Flow Rate 1 Narrative Exam Narrative: Lungs-diffuse wheezing without crackles, 3/4 breath sounds bilaterally Objective Labs Result Diagrams: 02/06/20 05:25 02/06/20 05:25 Labs: Laboratory Results - last 24 hr 02/06/20 02/06/20 05:25 05:25 WBC 12.3 H RBC 4.11 Hgb 12.4 Hct 37.4 MCV 91.0 MCH 30.1 MCHC 33.1 RDW 13.5 Plt Count 303 Neut % (Auto) 90.4 H Lymph % (Auto) 6.3 L [place] % (Auto) 3.0 Eos % (Auto) 0.0 L Baso % (Auto) 0.3 Neut # (Auto) 32199 H Lymph # (Auto) 800 L [place] # (Auto) 400 Eos # (Auto) 0 Baso # (Auto) 0 Sodium 136 L Potassium 4.1 Chloride 105 Carbon Dioxide 24 BUN 11 Creatinine 0.65 Estimated GFR > 60.0 BUN/Creatinine Ratio 16.9 Glucose 155 H Calcium 9.3 Assessment & Plan Assessment & Plan narrative: 1. Atypical pneumonia with reactive airways-continue with current antibiotic therapy and corticosteroids. Continue with frequent nebulizers. 2. Opiate withdrawal-continue with low-dose lorazepam will add an antiemetic. Ondansetron will be employed (does have an interaction with Levaquin for QT prolongation but will continue to monitor her carefully in the hospital, so seems appropriate). Will add clonidine in effort to reduce her withdrawal as well. If she becomes much more severe would consider use of methadone while hospitalized (but not long-term) 3. History of cigarette smoking-unclear whether patient is having any nicotine withdrawal as well. Will hold off on any nicotine replacement given the issues with the opiates/heroin withdrawal as above. 4. Substance use disorder-patient will be if not completely mostly detoxed from the opiates when she leaves the hospital. That would be a perfect time for her to enter into the substance use disorder program, an inpatient program would be the most beneficial. Thus far she has been resistant to that but that would be my strong recommendation as well. Note: Greater than 25 minutes was spent evaluating the patient on the floor, including examining the patient, discussing clinical course with clinical and nursing staff, reviewing clinical course in the computer, preparing documentation and writing orders for continued management of care, discussing status with family as appropriate, reviewing plans for the next 24 hours with both patient/family and nursing staff as appropriate.
[2020-02-06] MEDS: cloNIDine TTS 0.2 MG PATCH TOP (11:23)
--- NOTE | 2020-02-06 15:07 | PC.NURSE ---
Shift summary: Uneventful shift today. Patient able to rest on and off. Patient states breathing/shortness of breath improved, and tolerated room air with oxygen saturations remaining WNL this shift. Voiding without difficulty, standby assistance to bathroom with IV pole for safety. Patient reported mild nausea this morning, but reports tolerating meals. Call light within reach.
[2020-02-06] MEDS: IBUPROFEN 600 MG TABLET PO (16:00)
--- NOTE | 2020-02-06 16:11 | PC.NURSE ---
Addendum entered by Lotus Taylor R.N. 02/06/20 22:43: Pt's mother has visited this evening shift. Pt on telephone and occasionally tearful. Staff inquire how can be of help. Meds as per emar to treat anxiety, nausea, headache pain. States desires to sleep. Allowing for uninterrupted sleep. Reviewed care management has seen this patient. Original Note: Standby assistance to bathroom to void. Pt does not weight bear left foot as states recent prior surgery. Noted healing scar to dorsal aspect and left lateral aspect of foot. Occasional harsh cough and pt reports productive of yellow sputum. This was unwitnessed. Pt c/o headache pain 12/29. Requests to sit up in chair. Ibuprofen for headache pain as well as ice pack behind neck. IV to left wrist infusing without difficulty. Connection was tightened to iv hub as leaking blood and this ceases with securing of connection. Encouraged to call for needs.
[2020-02-06] MEDS: ACETAMINOPHEN 325 MG TABLET 650 MG PO (18:38)
[2020-02-06] MEDS: levoFLOXacin 750 MG/150 ML PIGGYBACK 100 MG IV (20:56)
[2020-02-06] MEDS: ONDANSETRON 4 MG/2 ML INJ IV (22:07)
[2020-02-07] VITALS (10 sets, daily range): BP systolic 129–141; BP diastolic 70–98; PULSE 60–97; RESP 16–18; TEMP 36.4–36.9; O2SAT 92–97
[2020-02-07] MEDS: LORazepam 2 MG/ML INJ 0.5 MG IV ×5 (00:15→21:06)
[2020-02-07] MEDS: methylPREDNISolone 125 MG/2 ML VIAL 60 MG IV ×4 (03:07→21:52)
[2020-02-07] MEDS: SODIUM CHLORIDE 0.9% FLUSH 10 ML IV ×2 (03:08→12:14)
[2020-02-07 05:44] LABS: Add Manual Diff / Slide Review NO; Basophils Absolute Auto 0 /uL (0-100); Basophils Percent Auto 0.2 % (0-2); Eosinophils Absolute Auto 0 /uL (0-450); Eosinophils Percent Auto 0.2 % (2-4); Hematocrit 35.8 % (36-46); Lymphocytes Absolute Auto 900 /uL (1100-4500); Lymphocytes Percent Auto 7.5 % (25-40); Mean Corpuscular HGB Conc 33.7 % (30-36); Mean Corpuscular Hemoglobin 30.5 PG (26-34); Mean Corpuscular Volume 90.6 fL (80-100); Monocytes Absolute Auto 300 /uL (0-900); Monocytes Percent Auto 2.6 % (3-14); Neutrophils Absolute Auto 11000 /uL (1500-7000); Neutrophils Percent Auto 89.5 % (50-75); Platelet Count 273 X10^3/uL (150-400); Red Blood Cell Count 3.95 X10^6/uL (4.0-5.2); Red Cell Distribution Width 13.6 % (11.6-14.8); White Blood Cell Count 12.3 X10^3/uL (4.5-11.0)
[2020-02-07 05:51] LABS: BUN Creatinine Ratio 21.9 (6-22); Blood Urea Nitrogen 16 mg/dL (7-17); Calcium 8.7 mg/dL (8.4-10.2); Carbon Dioxide 26 mmol/L (22-32); Chloride 104 mmol/L (98-107); Estimated Glomerular Filt Rate > 60.0 mL/min (>60); Glucose 147 mg/dL (70-100); HEMOLYSIS < 15 (0-50); Potassium 4.1 mmol/L (3.4-5.1); Sodium 135 mmol/L (137-145)
--- NOTE | 2020-02-07 08:34 | CM.DPC ---
DCP Cont: Per RN, pt is alert and oriented this morning and has been quite independent in her room and pending MD rounding pt may be stable for d/c today. SW met bedside with pt and explained role and followed up on SPRING TESTER conversation yesterday with pt regarding her interest in CD resources/Inpt CD treatment at discharge and pt confirms again that she is not interested in SW initiating treatment, either inpt or outpt, at this time. Pt was laying quietly in her hospital bed with blanket pulled up and was willing to participate in discussion but provided very brief answers. Pt confirms that she is aware and has attempted to access housing resources through [employer] and other resources and denies any further community resources at this time. Pt states she has someone who can give her a ride and she plans to stay with friends at d/c. Pt aware that she may be stable for d/c today pending MD rounding this morning. SW updated RN. Plan: SW to follow for pt d/c to friends house via friend POV and pt aware of community resources and declines SW support with setting up CD tx at this time. Lisseth Jovel, SPRING TESTER
[2020-02-07] MEDS: DEXTROSE 5%-0.9% NS 1,000 ML 100 ML IV (09:40)
[2020-02-07] MEDS: ENOXAPARIN 40 MG/0.4 ML SYRINGE SUBCUT (09:42)
--- NOTE | 2020-02-07 11:58 | P.PN_ITS ---
Subjective Subjective Date Patient Seen: 02/07/20 Time Patient Seen: 11:58 Interval history: Patient feels better. She is off oxygen now. Still coughing whenever she takes a deep breath but feels like she is able to breathe better. Has not really been up out of bed. She is somewhat hampered by a recent surgery on her left foot and she is not supposed to be up bearing weight without her walking boot which apparently she does not have with her No other active issues. A bit stressed out with social issues regarding her children and children's father etcetera Nausea appears to be minimal if any, I am just a bit anxious because of social issues as above, no real active withdrawal symptoms that she would at least admit to Exam Vital Signs (past 8 hours): - 02/07/20 05:10 02/07/20 07:55 02/07/20 09:06 Temperature 97.9 F 98.4 F Pulse Rate 97 H 80 92 H Respiratory Rate 18 16 16 Blood Pressure 141/85 H 135/96 H Pulse Oximetry 94 96 93 Oxygen Delivery Method Room Air Oxygen Flow Rate 0 Narrative Exam Narrative: Young woman in no obvious distress lying in hospital bed kind of curled up, with lunch sitting waiting for her HEENT-unremarkable Lungs-after a round of coughing, clear with no wheezes good air movement Heart-regular rate and rhythm Abdomen-positive bowel tones soft nontender Objective Labs Result Diagrams: 02/07/20 05:30 02/07/20 05:30 Labs: Laboratory Results - last 24 hr 02/07/20 02/07/20 05:30 05:30 WBC 12.3 H RBC 3.95 L Hgb 12.0 Hct 35.8 L MCV 90.6 MCH 30.5 MCHC 33.7 RDW 13.6 Plt Count 273 Neut % (Auto) 89.5 H Lymph % (Auto) 7.5 L [place] % (Auto) 2.6 L Eos % (Auto) 0.2 L Baso % (Auto) 0.2 Neut # (Auto) 64354 H Lymph # (Auto) 900 L [place] # (Auto) 300 Eos # (Auto) 0 Baso # (Auto) 0 Sodium 135 L Potassium 4.1 Chloride 104 Carbon Dioxide 26 BUN 16 Creatinine 0.73 Estimated GFR > 60.0 BUN/Creatinine Ratio 21.9 Glucose 147 H Calcium 8.7 Assessment & Plan Assessment & Plan narrative: 1. Atypical pneumonia with reactive airways-continue with current antibiotic therapy and corticosteroids. Continue with frequent nebulizers. Now off oxygen. Probably ready to go home tomorrow. She is encouraged to get up out of bed and move around some. 2. Opiate withdrawal-patient's symptoms are improved. Continue with clonidine patch including after discharge. Hopefully she can minimize use of lorazepam and ondansetron 3. History of cigarette smoking-no evidence of actual nicotine withdrawal although difficult to find in the setting of opiate withdrawal 4. Substance use disorder-patient is still declining any sort of treatment option will upon discharge. Care management team has been discussing this with her on a daily basis. Overall much improved and probably ready for discharge tomorrow assuming clinical course remained stable to improved. Note: Greater than 25 minutes was spent evaluating the patient on the floor, including examining the patient, discussing clinical course with clinical and nursing staff, reviewing clinical course in the computer, preparing documentation and writing orders for continued management of care, discussing status with family as appropriate, reviewing plans for the next 24 hours with both patient/family and nursing staff as appropriate.
[2020-02-07] MEDS: ALBUTEROL/IPRATROPIUM 3 ML AMPUL INH (14:15)
[2020-02-07] MEDS: ACETAMINOPHEN 325 MG TABLET 650 MG PO ×2 (15:32→21:05)
[2020-02-07] MEDS: levoFLOXacin 750 MG/150 ML PIGGYBACK 100 MG IV (21:05)
[2020-02-08] MEDS: LORazepam 2 MG/ML INJ 0.5 MG IV ×2 (01:32→08:48)
[2020-02-08] MEDS: methylPREDNISolone 125 MG/2 ML VIAL 60 MG IV ×2 (03:23→08:58)
[2020-02-08 03:29] VITALS: PULSE 69; RESP 18; TEMP 36.5; O2SAT 97
[2020-02-08 05:12] LABS: Add Manual Diff / Slide Review NO; Basophils Absolute Auto 0 /uL (0-100); Basophils Percent Auto 0.2 % (0-2); Eosinophils Absolute Auto 0 /uL (0-450); Hematocrit 37.8 % (36-46); Hemoglobin 12.9 g/dL (12.0-16.0); Lymphocytes Absolute Auto 900 /uL (1100-4500); Lymphocytes Percent Auto 7.9 % (25-40); Mean Corpuscular HGB Conc 34.2 % (30-36); Mean Corpuscular Hemoglobin 30.8 PG (26-34); Mean Corpuscular Volume 90.2 fL (80-100); Monocytes Absolute Auto 300 /uL (0-900); Monocytes Percent Auto 3.2 % (3-14); Neutrophils Absolute Auto 9700 /uL (1500-7000); Neutrophils Percent Auto 88.7 % (50-75); Platelet Count 294 X10^3/uL (150-400); Red Blood Cell Count 4.19 X10^6/uL (4.0-5.2); Red Cell Distribution Width 13.1 % (11.6-14.8); White Blood Cell Count 10.9 X10^3/uL (4.5-11.0)
[2020-02-08 05:19] LABS: BUN Creatinine Ratio 21.6 (6-22); Blood Urea Nitrogen 16 mg/dL (7-17); Calcium 8.9 mg/dL (8.4-10.2); Carbon Dioxide 27 mmol/L (22-32); Chloride 102 mmol/L (98-107); Estimated Glomerular Filt Rate > 60.0 mL/min (>60); Glucose 130 mg/dL (70-100); HEMOLYSIS < 15 (0-50); Potassium 4.2 mmol/L (3.4-5.1); Sodium 135 mmol/L (137-145)
[2020-02-08 08:20] VITALS: BP 132/80; PULSE 89; RESP 16; TEMP 36.8; O2SAT 94
[2020-02-08 08:24] VITALS: PULSE 72; RESP 16; O2SAT 98
--- NOTE | 2020-02-08 08:28 | PM.DS.1 ---
History of Present Illness History of Present Illness Date Patient Seen: 02/08/20 Time Patient Seen: 08:28 Chief complaint: states she cant breath Narrative: Patient admitted through the ER because of shortness of breath. She has been having shortness of breath symptoms since September has had a cough a and slight wheeze. She had no fever chills she is aware of. No head congestion to shortness of breath period of this persisted for several weeks. She came to the walk-in clinic last week found to have what was felt to be atypical pneumonia placed on oral steroids and azithromycin. She did not feel like this had any effect. She came in this morning because of increased shortness of breath. Additionally she is a daily heroin user and she wants to stop using heroin and she feels like she may need some assistance as far for the withdrawal. She has had heroin withdrawal in the past. She apparently has been using daily heroin since July of this year. She is evaluated in with louann Jenkins negative. Patient has been a smoker intermittently for several years on and off she quit smoking during the fibroid disease. She denies ever having had a title of of COPD. {from Dr. Mcelroy's H&P 02/05/20} Discharge Providers Provider Date of admission: 02/05/20 01:53 Discharge Date: 02/08/20 Primary care physician: Roberto Anderson MD Consults: 02/05/20 09:13 Consult to Discharge Planning Routine Comment: homeless 02/05/20 09:22 Consult to TERRAZZO WORKER APPRENTICE - Eyeglass Fitter Routine Comment: homeless and active heroin user 02/05/20 14:06 Consult to Respiratory Therapy Evaluate & Treat Comment: Physician Instructions: Evaluate and treat Discharge provider: Benjamin Garcia MD Summary Hospital Course Discharge Diagnosis: 1. Atypical pneumonia 2. Reactive airways disease/asthma/COPD 3. Active smoker 4. Substance abuse disorder with heroin use 5. Bipolar 6. Status post left foot surgery, details unavailable Hospital Course: Patient was admitted to the hospital because of persistent dyspnea with evidence of multifocal pneumonia and mild hypoxia on presentation. She was treated with IV steroids and IV antibiotics. With this she had rather remarkable improvement over the course of the 1st 24-36 hours. She was able to be wean from and had oxygen removed. She continued on IV steroids and IV antibiotics through the course of her hospitalization Patient came to the hospital also actively using heroin, smoking it. She had some minor withdrawal symptoms that seem to be ameliorated with antiemetics and benzodiazepines. She was offered various forms of assistance and treatment programs by the care management staff but she refused all of the options or offers Patient also had been living with an X and 1 of her children. She feels like that is not a stable environment for her to return to mostly physically as the apartment apparently is covered in mold and she is convinced that that contributed to her presentation. She is adamant that she has friends and or resources to find temporary housing. She has had some difficulty with housing recently because of an addiction earlier in the year and lack of financial resources. Again care management staff offered her various levels of assistance that she declined Patient also recently had left foot surgery done at outside facility. Details of the surgery unavailable but she continues to be weight-bearing only with walking boot apparently and not able to return to work as yet. She will continue follow her surgeons postoperative recommendations Patient need to be seen by her PCP (Dr. Anderson) in approximately 1 weeks time. She will be discharged to finish up a course of oral antibiotics and a tapering course of prednisone. She also have an albuterol inhaler and her other usual meds Exam Vital Signs (past 8 hours): - 02/08/20 03:29 02/08/20 08:20 02/08/20 08:24 Temperature 97.7 F 98.2 F Pulse Rate 69 89 72 Respiratory Rate 18 16 16 Blood Pressure 132/80 Pulse Oximetry 97 94 98 Oxygen Delivery Method Room Air Oxygen Flow Rate 0 Objective Labs Result Diagrams: 02/08/20 04:50 02/08/20 04:50 Labs: Laboratory Results - last 24 hr 02/08/20 02/08/20 04:50 04:50 WBC 10.9 RBC 4.19 Hgb 12.9 Hct 37.8 MCV 90.2 MCH 30.8 MCHC 34.2 RDW 13.1 Plt Count 294 Neut % (Auto) 88.7 H Lymph % (Auto) 7.9 L [place] % (Auto) 3.2 Eos % (Auto) 0.0 L Baso % (Auto) 0.2 Neut # (Auto) 9700 H Lymph # (Auto) 900 L [place] # (Auto) 300 Eos # (Auto) 0 Baso # (Auto) 0 Sodium 135 L Potassium 4.2 Chloride 102 Carbon Dioxide 27 BUN 16 Creatinine 0.74 Estimated GFR > 60.0 BUN/Creatinine Ratio 21.6 Glucose 130 H Calcium 8.9 Discharge Plan Discharge Plan Patient Disposition: Home Discharge orders & Medications Prescriptions: New levofloxacin 750 mg tablet 750 mg PO DAILY Qty: 5 RF: 0 prednisone 20 mg tablet See Rx Instructions .ROUTE .COMPLEX Qty: 16 RF: 0 Continued albuterol sulfate 90 mcg/actuation HFA aerosol inhaler 1 inh INHALATION Q4-6H PRN (Reason: shortness of breath) Qty: 18 RF: 0 levonorgestrel [Mirena] 20 mcg/24 hr (5 years) intrauterine device Intrauterine RF: 0 ibuprofen 600 mg Tablet 600 mg PO Q6HR PRN (Reason: As Needed For Fever/Mild Pain) Qty: 20 RF: 0 Discontinued azithromycin 250 mg tablet See Rx Instructions PO .COMPLEX 5 Days Qty: 6 RF: 0 prednisone 20 mg tablet See Rx Instructions PO .COMPLEX 6 Days Qty: 7 RF: 0 Follow up/Referrals: Roberto Anderson MD [Primary Care Provider] - 1 Week Discharge Health Status Multidrug resistant organism: No MDRO Diet/Activity/Treatments Diet: Diet as Tolerated Discharge Data Primary Care Provider: Roberto Anderson
[2020-02-08] MEDS: SODIUM CHLORIDE 0.9% FLUSH 10 ML IV ×2 (08:48→08:59)
[2020-02-08] MEDS: ALBUTEROL/IPRATROPIUM 3 ML AMPUL INH (10:10)
[2020-02-08 10:11] VITALS: RESP 16; O2SAT 98
[2020-02-08] MEDS: ACETAMINOPHEN 325 MG TABLET 650 MG PO (10:53)
[2020-02-08] MEDS: IBUPROFEN 600 MG TABLET PO (10:53)
--- NOTE | 2020-02-08 12:16 | CM.DPC ---
DCP Discharge Home Per MD, pt is stable for discharge to home today and continues to decline any CD or community services and to follow up after d/c with PCP. Per RN, pt has obtained clothing for discharge home today and no further concerns at this time and friend to provide transport to the community. SW had met bedside again with pt yesterday and confirmed that pt was not interested in any further SW support or resources. Plan: Patient to d/c this afternoon via friend POV and outpt follow up with PCP. RA Lei
--- NOTE | 2020-02-08 12:41 | PC.NURSE ---
Discharge: IV dc'd intact. Reviewed all discharge instructions thoroughly. She knows to sheepskin pickler 2 scripts at her Rx and to take as directed and until all gone. She will call to schedule follow up with Dr Anderson for about 1 week out. Given education info on substance abuse, new meds, and atypical pneumonia. Patient verbalized understanding of d/c info and stated no further questions. All personal belongings collected and sent with patient. Wheeled out to private vehicle accompanied by nursing staff.
== END 2020-02-08 12:55 | disposition home or self-care (01) | DRG 193 ==
LOC: ED 02-05 01:34 → AC 02-05 01:55
PROVIDERS: Family Medicine; Admitting Provider Family Medicine; Emergency Provider Emergency Medicine; Family Provider Family Medicine; PCP Family Medicine; Referring Provider Emergency Medicine; Visit Provider Family Medicine
DX: J18.9 Pneumonia, unspecified organism (principal); J96.01 Acute respiratory failure with hypoxia; F11.23 Opioid dependence with withdrawal; Z59.0 Homelessness; F41.9 Anxiety disorder, unspecified; M79.7 Fibromyalgia; F17.210 Nicotine dependence, cigarettes, uncomplicated; J44.9 Chronic obstructive pulmonary disease, unspecified; F31.9 Bipolar disorder, unspecified
CPT/HCPCS: 36415; 71046; 71275; 80048; 80053; 82728; 83605; 83880; 84145; 85025; 85379; 86140; 87040; 87635; 94150; 94640; 96365; 96375; 99223; 99232; 99233; 99238; 99284; 99406; A9270; J1650; J1956; J2060; J2405; J2930; Q9967

== ENCOUNTER → 2020-04-01 14:35 | Outpatient (CLI) | payer OTHER, MEDICAID, SELFPAY ==
[2020-02-05 02:06] VITALS: BMI 28.1
--- NOTE | 2020-04-01 14:37 | DI.RAD.S_ITS ---
PROCEDURE: XR CHEST 2V INDICATIONS: cough TECHNIQUE: 2 views of the chest were acquired. COMPARISON: [facility], CR, XR CHEST 2V, 02/04/2020, 20:24. [facility], CR, XR CHEST 2V, 02/01/2020, 16:39. FINDINGS: Surgical changes and devices: None. Lungs and pleura: Lungs are clear. No pleural effusions or pneumothorax. Mediastinum: Mediastinal contours are normal. Heart size is normal. Bones and chest wall: No suspicious bony abnormalities. Soft tissues appear unremarkable. IMPRESSION: Normal for age, source of current cough symptoms is not seen. Dictated by: Alfred George M.D. on 04/01/2020 at 15:05 Approved by: Alfred George M.D. on 04/01/2020 at 15:05
== END ==
PROVIDERS: Family Provider Family Medicine; PCP Family Medicine; Referring Provider Physician Assistant; Visit Provider Physician Assistant
DX: R05 Cough (principal)
CPT/HCPCS: 71046

== ENCOUNTER → 2020-04-01 16:14 | Outpatient (CLI) | payer OTHER, MEDICAID, SELFPAY ==
[2020-02-05 02:06] VITALS: BMI 28.1
[2020-04-02 17:21] LABS: COVID19 Sendout Not Detected (Not Detected)
== END ==
PROVIDERS: Family Provider Family Medicine; PCP Family Medicine; Visit Provider Physician Assistant
DX: Z11.59 Encounter for screening for other viral diseases (principal); R05 Cough
CPT/HCPCS: 71046; 87635

== ENCOUNTER → 2020-05-13 18:58 | Outpatient (CLI) | payer OTHER, MEDICAID, SELFPAY ==
[2020-02-05 02:06] VITALS: BMI 28.1
--- NOTE | 2020-05-13 19:01 | DI.RAD.S_ITS ---
PROCEDURE: XR CHEST 2V INDICATIONS: cough TECHNIQUE: 2 views of the chest were acquired. COMPARISON: [facility], CT, CT ANGIO CHEST PE PROTOCOL, 02/04/2020, 22:16. [facility], CR, XR CHEST 2V, 04/01/2020, 14:32. [facility], CR, XR CHEST 2V, 02/04/2020, 20:24. FINDINGS: Surgical changes and devices: None. Lungs and pleura: Lungs are abnormal with a mild perihilar pneumonitis pattern, similar to that previously present in mid January of this year.. No pleural effusions or pneumothorax. Mediastinum: Mediastinal contours are normal. Heart size is normal. Bones and chest wall: No suspicious bony abnormalities. Soft tissues appear unremarkable. IMPRESSION: Mild perihilar pneumonitis pattern, potentially representing atypical/viral pneumonia. Dictated by: Alfred George M.D. on 05/13/2020 at 19:27 Approved by: Alfred George M.D. on 05/13/2020 at 19:30
== END ==
PROVIDERS: Family Provider Family Medicine; PCP Family Medicine; Referring Provider Family Medicine; Visit Provider Family Medicine
DX: J18.9 Pneumonia, unspecified organism (principal); R05 Cough
CPT/HCPCS: 71046

== ENCOUNTER 2021-02-03 13:27 | Emergency (ER) | payer OTHER, MEDICAID, SELFPAY ==
[2020-02-05 02:06] VITALS: BMI 28.1
[2021-02-03 13:53] VITALS: BP 140/76; PULSE 101; RESP 20; TEMP 37.1; O2SAT 100; BMI 27.1
--- NOTE | 2021-02-03 14:06 | ED_ITS ---
HPI - Recheck/Abnormal Lab/Rx General Chief Complaint: Recheck/Abnormal Lab/Rx Stated Complaint: Needs [place] Taken Out of Head Time Seen by Provider: 02/03/21 14:05 Source: patient Mode of arrival: Family Vehicle Limitations: no limitations History of Present Illness HPI narrative: Patient is a 40-year-old female who approximately 1 week ago sustained a laceration to her right parietal/occipital portion of the scalp. She had 3 tawanna placed. She returns today to have these removed. No new issues. Related Data Home Medications Medication Instructions Recorded Confirmed levonorgestrel 20 mcg/24 hours (6 INTRAUTERINE each 03/31/18 05/26/20 yrs) 52 mg intrauterine device (Mirena) Previous Rx's Medication Instructions Recorded albuterol sulfate 90 mcg/actuation 2 puff INHALATION Q4-6H PRN #8.5 05/18/20 aerosol inhaler gram prednisone 20 mg tablet See Rx Instructions .ROUTE 07/21/20 .COMPLEX #60 tab fluticasone propionate 110 2 puff INHALATION BID #12 gram 09/22/20 mcg/actuation HFA aerosol inhaler (Flovent HFA) Allergies Allergy/AdvReac Type Severity Reaction Status Date / Time morphine [MORPHINE] Allergy Intermediate delusional Verified 02/03/21 13:53 Review of Systems Constitutional Constitutional: Denies fever(s) Integumentary/Breasts Comments: Scalp wound with tawanna in place needing removed Hematologic/Lymphatic On Anticoagulants: No Patient History Medical History (Updated 02/03/21 @ 14:08 by Juan A Swift DO) ADHD Anxiety Cellulitis Cyst of finger Depression (~1993) Fibromyalgia (~2008) Migraines (~1993) examination following delivery Shoulder pain (~2011) Surgical History Status post delivery (07/06/11) Status post delivery (07/08/07) Family History Father Age: 62 Mental health problem Grandfather Diabetes mellitus Heart disease Social History household members: other Smoking Status: Former smoker alcohol intake: never Smoking Status: Former smoker tobacco type: cigarettes alcohol intake frequency: 0-2 drinks per day Substance Use Type: former substance user, marijuana and heroin Exam Initial Vital Signs Initial Vital Signs: Vital Signs Temperature 98.8 F 02/03/21 13:53 Pulse Rate 101 H 02/03/21 13:53 Respiratory Rate 20 02/03/21 13:53 Blood Pressure 140/76 02/03/21 13:53 Pulse Oximetry 100 02/03/21 13:53 Const General: cooperative and healthy appearing [facility] Head: other (Scalp wound looks very well. No signs of infection) Eyes General: appearance normal, both eyes and all related structures Resp Effort & Inspection: normal respiratory effort Skin Other: 3 tawanna removed without incident. Wound looks very well Neuro General: patient alert, patient awake, patient oriented x3 and moves all extremities Extrem General: capillary refill normal Psych Appearance: grossly normal Course Vital Signs Vital signs: Vital Signs - 8 hr 02/03/21 13:53 Temperature 98.8 F Pulse Rate 101 H Respiratory Rate 20 Blood Pressure 140/76 Pulse Oximetry 100 MDM - Recheck/Abnormal Lab/Rx MDM Narrative Medical decision making narrative: 3 tawanna were removed without incident. There was no signs of any infection. Discharge Plan Departure Patient Disposition: Home Clinical Impression: Encounter for removal of tawanna Activity Restrictions/Additional Instructions: The wound looks very well. There is no signs of any infection. You can shower like normal. Return to the emergency department for any new or worsening symptoms Prescriptions: No Action dexamethasone sodium phosphate 10 mg/mL solution 10 mg IM ONCE Qty: 1 RF: 0 albuterol sulfate 90 mcg/actuation HFA aerosol inhaler 2 puff INHALATION Q4-6H PRN (Reason: shortness of breath or wheezing) Qty: 8.5 RF: 3 prednisone 20 mg tablet See Rx Instructions .ROUTE .COMPLEX Qty: 60 RF: 0 Flovent HFA 110 mcg/actuation HFA aerosol inhaler 2 puff INHALATION BID Qty: 12 RF: 3 levonorgestrel [Mirena] 20 mcg/24 hr (5 years) intrauterine device Intrauterine RF: 0 Referrals: Roberto Anderson MD [Primary Care Provider] -
== END 2021-02-03 14:16 | disposition home or self-care (01) ==
PROVIDERS: Emergency Provider Emergency Medicine; Family Provider Family Medicine; PCP Family Medicine
DX: Z48.02 Encounter for removal of sutures (principal)
CPT/HCPCS: 99281

== ENCOUNTER 2021-12-02 13:52 | Emergency (ER) | payer OTHER, MEDICAID, SELFPAY ==
[2020-02-05 02:06] VITALS: BMI 28.1
[2021-12-02] VITALS (19 sets, daily range): BP systolic 122–136; BP diastolic 68–89; PULSE 94–114; RESP 16–24; TEMP 37.4; O2SAT 88–98; BMI 29.8
[2021-12-02] MEDS: ALBUTEROL/IPRATROPIUM 3 ML AMPUL INH ×3 (14:06→16:22)
[2021-12-02 14:17] LABS: COVID19 -Nasal RAPID Negative (Negative)
--- NOTE | 2021-12-02 14:27 | ED.ASTHMA ---
HPI - Asthma General Chief Complaint: Asthma Stated Complaint: SOB Time Seen by Provider: 12/02/21 14:23 Source: patient Mode of arrival: Ambulatory History of Present Illness HPI Narrative: Patient is a 41-year-old female. Does have a history of asthma. Does not have any of her inhalers at home. She states that she very frequently gets issues when she goes over to her ex-'s house where she states there is a bunch of mold in the house. She was there today watching some kids when she had a increase in the wheezing and problems breathing. No fevers. Is coughing. No recent travel. Does have some chest discomfort because of the coughing. She has had pneumonia in the past and has presented similar to this. Related Data Home Medications Medication Instructions Recorded Confirmed levonorgestrel 20 mcg/24 hours (7 INTRAUTERINE each 03/31/18 05/18/21 yrs) 52 mg intrauterine device (Mirena) Previous Rx's Medication Instructions Recorded albuterol sulfate 90 mcg/actuation 2 puff INHALATION Q4-6H PRN #8.5 05/18/20 aerosol inhaler gram fluticasone propionate 110 2 puff INHALATION BID #12 gram 09/22/20 mcg/actuation HFA aerosol inhaler (Flovent HFA) Allergies Allergy/AdvReac Type Severity Reaction Status Date / Time morphine [MORPHINE] Allergy Intermediate delusional Verified 12/02/21 14:03 Review of Systems Constitutional Constitutional: Denies fever(s) Cardiovascular Cardiovascular: Reports system reviewed and no additional complaints, except as documented Respiratory Respiratory: Reports system reviewed and no additional complaints, except as documented Gastrointestinal Gastrointestinal: Reports system reviewed and no additional complaints, except as documented Integumentary/Breasts Skin/Breast: Reports system reviewed and no additional complaints, except as documented Hematologic/Lymphatic On Anticoagulants: No Allergic/Immunologic Allergic/Immunologic: Reports system reviewed and no additional complaints, except as documented Patient History Medical History ADHD Anxiety Cellulitis Cyst of finger Depression (~1993) Fibromyalgia (~2008) Migraines (~1993) examination following delivery Shoulder pain (~2011) Surgical History Status post delivery (07/06/11) Status post delivery (07/08/07) Family History Father Age: 63 Mental health problem Grandfather Diabetes mellitus Heart disease Social History household members: other Smoking Status: Former smoker alcohol intake: never Smoking Status: Former smoker tobacco type: cigarettes alcohol intake frequency: 0-2 drinks per day Substance Use Type: former substance user, marijuana and heroin Exam Initial Vital Signs Initial Vital Signs: Vital Signs Temperature 99.4 F 12/02/21 13:56 Pulse Rate 104 H 12/02/21 13:56 Respiratory Rate 24 12/02/21 13:56 Blood Pressure 136/78 12/02/21 13:56 Pulse Oximetry 90 L 12/02/21 13:56 Const General: cooperative and comfortable HENMT Head: normal to inspection and normocephalic Resp Effort & Inspection: no respiratory distress and tachypneic Auscultation: wheezes Cardio Rate: tachycardic Rhythm: regular rhythm GI Inspection: normal to inspection Skin General: no rashes or lesions noted Neuro General: patient alert, patient awake and moves all extremities Extrem General: normal to inspection and capillary refill normal Course Orders Ordered: ED Orders 12/02/21 14:01 COVID19 -Nasal RAPID/Pre-Proc Stat 12/02/21 16:52 XR chest 1V Stat 12/02/21 17:07 Basic Metabolic Panel Stat Complete Blood Count AUTO DIFF Stat Albuterol/Ipratropium (Albuterol/Ipratropium 3 Ml Ampul) 3 ml INH Q1H PRN PRN Reason: Shortness Of Breath Last Admin: 12/02/21 14:06 Dose: 3 ml Documented by: JASON Discontinued Medications Albuterol (Albuterol 2.5 Mg/3 Ml Neb (Adult)) 2.5 mg INH NOW ONE Stop: 12/02/21 15:56 Last Admin: 12/02/21 16:32 Dose: 2.5 mg Documented by: JASON Albuterol (Albuterol 2.5 Mg/3 Ml Neb (Adult)) 20 mg INH NOW ONE Stop: 12/02/21 16:49 Last Admin: 12/02/21 16:55 Dose: 20 mg Documented by: JASON Albuterol/Ipratropium (Albuterol/Ipratropium 3 Ml Ampul) 3 ml INH NOW ONE Stop: 12/02/21 14:29 Last Admin: 12/02/21 14:44 Dose: 3 ml Documented by: JASON Albuterol/Ipratropium (Albuterol/Ipratropium 3 Ml Ampul) 3 ml INH NOW ONE Stop: 12/02/21 15:56 Last Admin: 12/02/21 16:22 Dose: 3 ml Documented by: JASON Magnesium Sulfate (Magnesium Sulfate) 2 gm in 50 mls @ 25 mls/hr IV NOW ONE Stop: 12/02/21 18:47 Last Infusion: 12/02/21 19:10 Dose: 0 mls/hr Documented by: ADI Cosigned by: CHAVO Admin: 12/02/21 17:08 Dose: 25 mls/hr Documented by: CHAVO Cosigned by: ADI Prednisone (Prednisone 20 Mg Tablet) 20 mg PO NOW ONE Stop: 12/02/21 14:29 Last Admin: 12/02/21 14:37 Dose: 20 mg Documented by: FELIX Vital Signs Vital signs: Vital Signs - 8 hr 12/02/21 13:56 12/02/21 14:01 12/02/21 14:23 Temperature 99.4 F Pulse Rate 104 H 100 H 100 H Respiratory Rate 24 20 Blood Pressure 136/78 Pulse Oximetry 90 L 93 93 12/02/21 14:30 12/02/21 15:00 12/02/21 15:30 Temperature Pulse Rate 101 H 103 H 94 H Respiratory Rate Blood Pressure Pulse Oximetry 92 92 93 12/02/21 16:00 12/02/21 16:26 12/02/21 16:30 Temperature Pulse Rate 94 H 94 H 97 H Respiratory Rate 16 Blood Pressure Pulse Oximetry 90 L 93 91 12/02/21 16:57 12/02/21 18:11 12/02/21 18:12 Temperature Pulse Rate 104 H 105 H 114 H Respiratory Rate 22 Blood Pressure 131/68 131/82 131/82 Pulse Oximetry 91 93 98 12/02/21 18:23 12/02/21 18:30 Temperature Pulse Rate 104 H 106 H Respiratory Rate 18 23 Blood Pressure 124/85 Pulse Oximetry 93 88 L MDM - Asthma Lab Data Attestation: I reviewed the patient's lab results. Result diagrams: 12/02/21 17:07 12/02/21 17:07 Labs: Lab Results 12/02/21 12/02/21 12/02/21 Range/Units 14:01 17:07 17:07 WBC 13.0 H (4.5-11.0) X10^3/uL RBC 4.30 (4.0-5.2) X10^6/uL Hgb 13.2 (12.0-16.0) g/dL Hct 38.5 (36-46) % MCV 89.5 (80-100) fL MCH 30.7 (26-34) PG MCHC 34.3 (30-36) % RDW 13.5 (11.6-14.8) % Plt Count 285 (150-400) X10^3/uL Neut % (Auto) 85.6 H (50-75) % Lymph % (Auto) 7.3 L (25-40) % [place] % (Auto) 5.0 (3-14) % Eos % (Auto) 1.5 L (2-4) % Baso % (Auto) 0.6 (0-2) % Neut # (Auto) 08829 H (4660-5326) /uL Lymph # (Auto) 1000 L (1050-5683) /uL [place] # (Auto) 600 (0-900) /uL Eos # (Auto) 200 (0-450) /uL Baso # (Auto) 100 (0-100) /uL Sodium 133 L (137-145) mmol/L Potassium 3.6 (3.4-5.1) mmol/L Chloride 95 L (98-107) mmol/L Carbon Dioxide 30 (22-32) mmol/L BUN 11 (7-17) mg/dL Creatinine 0.82 (0.52-1.04) mg/dL Estimated GFR > 60 (>60) mL/min BUN/Creatinine Ratio 13.4 (6-22) Glucose 156 H (70-100) mg/dL Calcium 8.8 (8.4-10.2) mg/dL SARS-CoV-2 (PCR) Negative (Negative) Imaging Data Chest x-ray: Radiologist's Impression: [address] [address] XRay Report Signed Patient: Glenys Zavaleta#: [id number] : 1980 Acct:[id number] Age/Sex: 41 / F Date of Service: 12/02/21 Loc: ED Accession Number: [id number] ?? Procedure: XR chest 1V Ordering Provider: Juan A Swift D.O. PROCEDURE:? XR CHEST 1V ? INDICATIONS:? Short of breath ? TECHNIQUE:? One view of the chest was acquired.? ? COMPARISON:? [facility], CR, XR CHEST 2V, 02/04/2020, 20:24.? [facility], CR, XR CHEST 2V, 04/01/2020, 14:32.? [facility], CR, XR CHEST 2V, 05/13/2020, 18:54. ? FINDINGS:? ? Surgical changes and devices:? None.? ? Lungs and pleura:? Lungs are clear.? No pleural effusions or pneumothorax.? ? Mediastinum:? Mediastinal contours appear normal.? Heart size is normal.? ? Bones and chest wall:? No suspicious bony lesions.? Overlying soft tissues appear unremarkable.? ? ? IMPRESSION:? ? Portable chest within normal limits. ? ? ? Dictated by: Ilan Epstein M.D. on 12/02/2021 at 16:30 ? ? Approved by: Ilan Epstein M.D. on 12/02/2021 at 16:31?? MDM Narrative Medical decision making narrative: Patient has been given multiple nebulizer treatments to include 3 DuoNebs, a continuous albuterol neb, individual be drawn nebs, has also received 2 g of magnesium and steroids with only slight improvement of her symptoms. Chest x-ray shows no signs of pneumonia. She is afebrile. Continues to have coarse breath sounds. Patient is unable to be admitted to the hospital because of social issues were she is watching children of other family members. Care turned over to Dr. Lopez to continue to observe and disposition Discharge Plan Departure Prescriptions: No Action albuterol sulfate 90 mcg/actuation HFA aerosol inhaler 2 puff INHALATION Q4-6H PRN (Reason: shortness of breath or wheezing) Qty: 8.5 3RF Flovent HFA 110 mcg/actuation HFA aerosol inhaler 2 puff INHALATION BID Qty: 12 3RF levonorgestrel [Mirena] 20 mcg/24 hr (5 years) intrauterine device Intrauterine 0RF Referrals: Roberto Anderson MD [Primary Care Provider] -
[2021-12-02] MEDS: predniSONE 20 MG TABLET PO (14:37)
[2021-12-02] MEDS: ALBUTEROL 2.5 MG/3 ML NEB (ADULT) INH (16:32)
--- NOTE | 2021-12-02 16:52 | DI.RAD.S_ITS ---
PROCEDURE: XR CHEST 1V INDICATIONS: Short of breath TECHNIQUE: One view of the chest was acquired. COMPARISON: [facility], CR, XR CHEST 2V, 02/04/2020, 20:24. [facility], CR, XR CHEST 2V, 04/01/2020, 14:32. [facility], CR, XR CHEST 2V, 05/13/2020, 18:54. FINDINGS: Surgical changes and devices: None. Lungs and pleura: Lungs are clear. No pleural effusions or pneumothorax. Mediastinum: Mediastinal contours appear normal. Heart size is normal. Bones and chest wall: No suspicious bony lesions. Overlying soft tissues appear unremarkable. IMPRESSION: Portable chest within normal limits. Dictated by: Ilan Epstein M.D. on 12/02/2021 at 16:30 Approved by: Ilan Epstein M.D. on 12/02/2021 at 16:31
[2021-12-02] MEDS: ALBUTEROL 2.5 MG/3 ML NEB (ADULT) 20 MG INH (16:55)
[2021-12-02] MEDS: MAGNESIUM SULFATE 2 GM/50 ML PIGGYBACK IV (17:08)
[2021-12-02 17:22] LABS: Add Manual Diff / Slide Review NO; Basophils Absolute Auto 100 /uL (0-100); Basophils Percent Auto 0.6 % (0-2); Eosinophils Absolute Auto 200 /uL (0-450); Eosinophils Percent Auto 1.5 % (2-4); Hematocrit 38.5 % (36-46); Hemoglobin 13.2 g/dL (12.0-16.0); Lymphocytes Absolute Auto 1000 /uL (1100-4500); Lymphocytes Percent Auto 7.3 % (25-40); Mean Corpuscular HGB Conc 34.3 % (30-36); Mean Corpuscular Hemoglobin 30.7 PG (26-34); Mean Corpuscular Volume 89.5 fL (80-100); Monocytes Absolute Auto 600 /uL (0-900); Neutrophils Absolute Auto 11100 /uL (1500-7000); Neutrophils Percent Auto 85.6 % (50-75); Platelet Count 285 X10^3/uL (150-400); Red Cell Distribution Width 13.5 % (11.6-14.8)
[2021-12-02 17:28] LABS: BUN Creatinine Ratio 13.4 (6-22); Blood Urea Nitrogen 11 mg/dL (7-17); Calcium 8.8 mg/dL (8.4-10.2); Carbon Dioxide 30 mmol/L (22-32); Chloride 95 mmol/L (98-107); Estimated Glomerular Filt Rate > 60 mL/min (>60); Glucose 156 mg/dL (70-100); HEMOLYSIS < 15 (0-50); Potassium 3.6 mmol/L (3.4-5.1); Sodium 133 mmol/L (137-145)
[2021-12-02] MEDS: ALBUTEROL HFA PREPACK 1 BOX MISC (20:40)
== END 2021-12-02 20:49 | disposition home or self-care (01) ==
PROVIDERS: Emergency Medicine; Emergency Provider Emergency Medicine; Family Provider Family Medicine; PCP Family Medicine
DX: J44.1 Chronic obstructive pulmonary disease with (acute) exacerbation (principal); Z20.822 Contact with and (suspected) exposure to COVID-19; R07.9 Chest pain, unspecified
CPT/HCPCS: 36415; 71045; 80048; 85025; 87635; 94150; 94640; 96360; 96361; 99284; 99285; C9803; J3475; J7613

== ENCOUNTER → 2023-12-12 15:15 | Outpatient (CLI) | payer OTHER, MEDICAID, SELFPAY ==
[2020-02-05 02:06] VITALS: BMI 28.1
== END ==
PROVIDERS: Family Provider Family Medicine; PCP Family Medicine; Referring Provider Family Medicine; Visit Provider Family Medicine
DX: R10.9 Unspecified abdominal pain (principal)
CPT/HCPCS: 36415; 82784; 83516

== ENCOUNTER 2025-05-24 11:39 | Day surgery (SDC) | payer OTHER, SELFPAY ==
[2020-02-05 02:06] VITALS: BMI 28.1
--- NOTE | 2025-05-24 | PATH_ITS ---
[facility] Accession Number: [id number] No. of containers..01 Tissue . 01 Material submitted: . gastrointestinal site - STOMACH . 01 Clinical history: . R/O H.PYLORI . 01 Diagnosis: STOMACH: Gastric mucosa with no diagnostic alterations. No Helicobacter organisms identified on H/E stain. No intestinal metaplasia, dysplasia, or malignancy identified. [facility] 06/03/20251338 Local . 01 Electronically signed: . Jose Johnson MD, Pathologist NPI- [id number] . 01 Gross description: . Received one formalin-filled container, labeled with the patient's name and stomach. The specimen consists of two fragments of knight, soft tissue which range in size from 0.2 x 0.2 x 0.2 cm to 0.3 x 0.1 x 0.1 cm. The specimen is totally submitted in one cassette. ([id number]) /[facility] 06/03/20251338 Local . 01 Pathologist provided ICD-10: R19.8 . 01 CPT . 327686 Specimen Comment: A courtesy copy of this report has been sent to [phone] Performed at: [address] [facility] [address], [place], [place] [id number] MD Jose Johnson MD Phone: [phone]
[2025-05-24 12:05] VITALS: BP 113/78; PULSE 86; RESP 16; TEMP 36.2; O2SAT 100
[2025-05-24] MEDS: LACTATED RINGERS 1,000 ML 42 ML IV (12:18)
--- NOTE | 2025-05-24 12:30 | PM.HP.IH.1 ---
History of Present Illness History of Present Illness Date Patient Seen: 05/24/25 Chief complaint: Colonoscopy Narrative: First screening colonoscopy [facility] Medical History (Updated 12/12/23 @ 15:03 by Roberto Anderson MD) Cyst of finger Cellulitis Depression (~1993) Anxiety Migraines (~1993) ADHD Shoulder pain (~2011) Fibromyalgia (~2008) examination following delivery Surgical History Status post delivery (07/08/07) Status post delivery (07/06/11) Family History Father Age: 66 Mental health problem Grandfather Diabetes mellitus Heart disease Social History household members: other alcohol intake: never Meds Home Medications and Allergies Home Medications ?Medication ?Instructions ?Recorded ?Confirmed ?Type levonorgestrel (Mirena) intrauterine 03/31/18 05/31/22 History methadone 57 mg PO DAILY 04/23/24 04/23/24 History ondansetron 4 mg disintegrating 4 mg PO DAILY PRN nausea and 04/23/24 04/23/24 Rx tablet vomiting #60 tabs peg 3350-electrolytes 236 240 ml PO Q10M #4,000 mL 04/22/25 Rx gram-22.74 gram-6.74 gram-5.86 gram solution (Golytely) Allergies Allergy/AdvReac Type Severity Reaction Status Date / Time morphine (MORPHINE) Allergy Intermediate delusional Verified 06/25/24 09:20 Exam Vital Signs (past 8 hours): - 05/24/25 12:05 Temperature 97.2 F L Pulse Rate 86 Respiratory Rate 16 Blood Pressure 113/78 Pulse Oximetry 100 Oxygen Delivery Method Room Air Oxygen Delivery Method Room Air Narrative Exam Narrative: Oropharynx free of lesions Chest clear to auscultation percussion Cardiac exam reveals no clear S3 or murmur Assessment & Plan Assessment & Plan narrative: For screening colonoscopy. Risks, benefits, alternatives have been explained. Time-Based Coding :: [TOTAL MINUTES] spent with patient and on the chart (including review of chart, obtaining history, exam, reviewing outside data, placing orders, documenting exam and treatment plan, and counseling patient) on [DATE]. PROFEE Tree Wrapper Document charge(s): No
--- NOTE | 2025-05-24 12:31 | PM.OP.COLON ---
Operative Date/Time/Diagnoses Date of procedure: 05/24/25 Time of procedure: 13:29 Pre-op diagnosis: See indication and findings Post-op diagnosis: same Procedure & Clinicians Study performed: Colonoscopy Same procedure(s) as scheduled: Yes Indications: Screening colonoscopy Surgeon: Heidi Boyle Anesthesia Type: Other Procedure Notes Procedure in detail: After informed consent was obtained the patient was placed in left lateral decubitus position. The video colonoscope was placed in the rectum slowly advanced cecum. Preparation was good. On slow withdrawal mucosa was carefully examined. The scope was removed. The patient tolerated the procedure well. Blood loss none Complications none Sedation mac Findings 1. Normal colonoscopy to cecum Patient should have colonoscopy in ten years Estimated Blood Loss: 0 Complications: none
--- NOTE | 2025-05-24 13:14 | PM.OP.ENDO ---
Operative Date/Time/Diagnoses Date of procedure: 05/31/25 Time of procedure: 13:28 Pre-op diagnosis: See indication and findings Post-op diagnosis: same Procedure & Clinicians Study performed: EGD Same procedure(s) as scheduled: Yes Indications: Intermittently severe nausea vomiting. Uses marijuana on a regular basis Anesthesia Type: Other Procedure Notes Procedure in detail: After informed consent was obtained the patient was placed in left lateral decubitus position. The video upper scope was placed into the oropharynx and with the patient's help swallowed into the esophagus. The esophagus stomach and duodenal were carefully examined. On withdrawal, retroflexed view the GE junction was carefully examined. The scope was removed. The patient tolerated procedure well. Blood loss none Complications none Sedation mac Findings 1. Normal esophagus 2. Mild striped erythema in the stomach biopsies taken to rule out Helicobacter Three. Normal duodenal bulb and sweep. Patient should try to minimize marijuana use and will follow-up with primary care. We will be in touch regarding the biopsies. Estimated Blood Loss: 0 Complications: none
[2025-05-24 13:33] VITALS: BP 104/51; PULSE 56; RESP 15; TEMP 36.3; O2SAT 94
[2025-05-24 13:38] VITALS: BP 100/54; PULSE 60; RESP 15; TEMP 36.3; O2SAT 96
[2025-05-24 13:46] VITALS: BP 113/65; PULSE 61; RESP 14; TEMP 36.2; O2SAT 98
== END 2025-05-24 14:20 | disposition home or self-care (01) ==
PROVIDERS: Family Provider Family Medicine; PCP Family Medicine; Referring Provider Internal Medicine Gastroenterology; Visit Provider Internal Medicine Gastroenterology
PROC: 0DJD8ZZ Inspection of Lower Intestinal Tract, Via Natural or Artificial Opening Endoscopic (ICD-10-PCS; CPT 45378; principal; 2025-05-24 13:00)
DX: Z12.11 Encounter for screening for malignant neoplasm of colon (principal); R11.2 Nausea with vomiting, unspecified
CPT/HCPCS: 45378; 43239; J2704; J7120